=== PATIENT | female | born 1975 | race Caucasian/White ===

== ENCOUNTER → 2017-12-06 | Outpatient (CLI) | payer OTHER ==
--- NOTE | 2017-12-06 10:44 | RAD ---
DATE: 12/16/2017 EXAM: DIGITAL DIAGNOSTIC BILATERAL, BREAST BILATERAL HISTORY: Right breast lump COMPARISON: Baseline study This study was interpreted with the benefit of Computerized Aided Detection (CAD). The breast parenchyma is dense, which could reduce the sensitivity of mammography. Breast parenchyma level density D. FINDINGS: A BB was placed over the area of palpable concern in the lateral aspect of the right breast. 2-D and 3-D tomosynthesis imaging was performed in CC and MLO projections. The breast tissues are heterogeneously and quite dense. No discrete mass is seen in the area of palpable concern in the lateral right breast. On the left, there is a smooth lobulated 2.8 cm nodule at the 11-12 o'clock location. There is a 2.2 cm smooth nodule at the 4-5 o'clock location. Minimal benign type calcifications present. No suspicious microcalcifications are evident. Bilateral breast ultrasound, 12/06/2017: A targeted ultrasound exam of both breasts was performed. We first targeted the area of palpable concern in the lateral right breast. An 11 mm simple cyst is present at that level. The fibroglandular tissues are heterogeneous. No other mass is seen. In the left breast we first targeted the 12:00 location. There is a cluster of at least 3 simple cysts located approximately 1 cm from the nipple which appear to correspond to the mammographic abnormality. The largest of these measures approximately 2 cm in diameter. We then targeted for o'clock location where there is a cluster of multiple smaller cysts. The largest cyst cluster at this level measures approximately 19 mm in length. This corresponds in location to the other mammographic abnormality. IMPRESSION: 1. Dense breasts with multiple bilateral simple cysts as described above. 2. Only a small cyst is identified in the area of mammographic concern laterally in the right breast. Clinical surveillance is suggested. BI-RADS CATEGORY: 2 BENIGN FINDING(S) RECOMMENDED FOLLOW-UP: 12M 12 MONTH FOLLOW-UP PQRS compliance statement: Patient information was entered into a reminder system with a target due date for the next mammogram. Mammography is a sensitive method for finding small breast cancers, but it does not detect them all and is not a substitute for careful clinical examination. A negative mammogram does not negate a clinically suspicious finding and should not result in delay in biopsying a clinically suspicious abnormality. "Our facility is accredited by the [employer] Mammography Program."
== END | disposition home or self-care (01) ==
LOC: MAMMO 08:34
PROVIDERS: ATTEND Nurse Practitioner Family
DX: R92.2 Inconclusive mammogram (principal); N60.01 Solitary cyst of right breast
CPT/HCPCS: 76641; 77066